=== PATIENT | male | born 1955 | race African-American/Black ===

== ENCOUNTER 2017-01-19 11:51 | Inpatient (IN) | payer OTHER ==
[2017-01-19] VITALS (11 sets, daily range): BP systolic 112–134; BP diastolic 70–86
[~2017-01-19] VITALS: Ht 193 cm; Wt 90.7 kg
[~2017-01-19 11:51] MED LIST: ACIPHEX20 MG ORAL; ASPIRIN81 MG ORAL; Bacitracin 50000 Units Vial ONE; Bupivacaine w/Epi 0.5% 30ml Vial INJ ONE; CARVEDILOL12.5 MG ORAL; CRESTOR20 MG ORAL; DICLOFENAC-MIS1 EAC2 PO; DIOVAN80 MG ORAL; GABAPENTIN300 MG ORAL; Gelfoam Absorbable 1gm powder pkt TOPIC ONE; MORPHINE IR15 MG ORAL; OXYCODONE-ACET1 EAC5 ORAL; TRAMADOL HCL50 MG ORAL; Thrombin 5000 units TOPIC ONE; Thrombin 5000 units spray kit TOPIC ONE
--- NOTE | 2017-01-19 12:29 | Pre-Procedure Note/Attestation ---
Pre-Procedure Note/Attestation Complete Prior to Procedure Procedure Narrative: L3-4, L4-5 Anterior Lumbar Decompression and Fusion Indications for Procedure Pre-Operative Diagnosis: Instability and neural compression L3-4 & L4-5 Attestation I attest that I discussed the nature of the procedure; its benefits; risks and complications; and alternatives (and the risks and benefits of such alternatives ), prior to the procedure, with the patient (or the patient's legal abrasives sales representative). I attest that, if there was a reasonable possibility of needing a blood transfusion, the patient (or the patient's legal abrasives sales representative) was given the [facility] standardized written summary, pursuant to the Amarjit Dimmitt Blood Safety Act ([place] [facility] and Safety Code # 1645, as amended). I attest that I re-evaluated the patient just prior to the surgery and that there has been no change in the patient's H&P, except as documented below: KAITLYNN IZQUIERDO Jan 19, 2017 12:29
[2017-01-19] MEDS ORDERED: Heparin 5000 units/ml inj ONE (12:40)
[2017-01-19] MEDS ORDERED: ePHEDrine 50mg/ml Inj ONE (13:00)
[2017-01-19] MEDS ORDERED: Propofol 10mg/ml 100ml btl IV ONE (13:00)
[2017-01-19] MEDS ORDERED: fentaNYL 100 mcg/2 mL IV ONE (13:00)
[2017-01-19] MEDS ORDERED: Zemuron 50mg/5ml Inj IV ONE (13:00)
[2017-01-19] MEDS ORDERED: Sterile Water Irrig 1000ml IRRIG ONE (13:00)
[2017-01-19] MEDS ORDERED: Midazolam 2mg/2ml Inj ONE (13:00)
[2017-01-19] MEDS ORDERED: NS Irrig 1000ml ONE (13:00)
[2017-01-19] MEDS ORDERED: LR 1000ml ONE (13:00)
[2017-01-19] MEDS ORDERED: LR 1000ml 1,000 ML IVLG SCH ×2 (14:07)
[2017-01-19] MEDS ORDERED: LR 1000ml 1,000 ML IV SCH (14:15)
[2017-01-19] MEDS ORDERED: Meperidine 25mg/ml Inj IV PRN (14:15)
[2017-01-19] MEDS ORDERED: LORazepam Inj 2mg/ml 1ml IV PRN (14:15)
--- NOTE | 2017-01-19 14:22 | Anethesia Preoperative Eval ---
Anesthesia Pre-op PMH/ROS General Date of Evaluation: Jan 19, 2017 Time of Evaluation: 13:00 Anesthesiologist: Edgardo ASA Score: ASA 3 Mallampati Score Class I : Soft palate, uvula, fauces, pillars visible Class II: Soft palate, uvula, fauces visible Class III: Soft palate, base of uvula visible Class IV: Only hard plate visible Mallampati Classification: Class II Surgeon: Alisa Diagnosis: Back Pain Surgical Procedure: ALIF L3-4, L4-5 Social History: smoking - Quit 2 years ago Family History: no anesthesia problems Allergies: Coded Allergies: No Known Allergies (Unverified , 01/16/17) Past Medical History Cardiovascular: Reports: CAD, [place] - s/p Coronary stents X4 Pulmonary: Reports: COPD Gastrointestinal/Genitourinary: Denies: CRI, ESRD, GERD, other Neurologic/Psychiatric: Denies: CVA, TIA, dementia, depression/anxiety, other Endocrine: Denies: DM, hypothyroidism, other, steroids HEENT: Denies: MI'KMAQ (L), MI'KMAQ (R), cataract (L), cataract (R), glaucoma, other Hematology/Immune: Denies: DVT, anemia, bleeding disorder, other Musculoskeletal/Integumentary: Denies: DDD, DJD, OA, RA, edema, other PMH Narrative: CAD, [place] (s/p coronary stents X4), COPD PSxH Narrative: Coronary stents X4, multiple shoulder surgeries Anesthesia Pre-op Phys. Exam Physician Exam Last Vital Signs Date Time Temp Pulse Resp B/P Pulse Ox O2 Delivery O2 Flow Rate FiO2 01/19/17 12:29 97.5 60 18 112/70 98 Room Air Constitutional: NAD Neurologic: CN 2-12 intact Cardiovascular: RRR, no M/R/G Respiratory: CTA Gastrointestinal: S/NT/ND Airway Exam Mallampati Score: Class II MO: full ROM: full Teeth: missing Anesthesia Pre-op A/P Studies Pre-op Studies: EKG - Sinus Doyle, echo - EF 50-55%, normal wall motion, PFTS - Decreased FEV 1 and FVC Risk Assessment & Plan Assessment: Chronic back pain in patient with h/o CAD (s/p [place] and coronary stents) Plan: GETA, Sadorus scope intubation Status Change Before Surgery: No Pre-Antibiotics Drug: Ancef Given Within 1 Hr of Incision: Yes Time Given: 13:30 NEDA ADAMS M.D. Jan 19, 2017 14:22
--- NOTE | 2017-01-19 14:24 | Immediate Post-Op Evaluation ---
Immediate Post-Op Evalulation Immediate Post-Op Evalulation Procedure: ALIF L3-4, L4-5 Date of Evaluation: Jan 19, 2017 Time of Evaluation: 16:02 IV Fluids: 1700 Estimated Blood Loss: 75 Urinary Output: 300 Blood Pressure Systolic: 122 Blood Pressure Diastolic: 80 Pulse Rate: 66 Respiratory Rate: 13 O2 Sat by Pulse Oximetry: 100 Temperature (Fahrenheit): 97.0 Pain Score (1-10): 0 Nausea: No Vomiting: No Complications No complication Patient Status: reacts, patent, extubated, none Hydration Status: adequate Drug: Ancef Given Within 1 Hr of Incision: Yes Time Given: 13:30 NEDA ADAMS M.D. Jan 19, 2017 14:24
[2017-01-19] MEDS ORDERED: NS Irrig 1000ml IRRIG ONE (14:33)
[2017-01-19] MEDS ORDERED: Acetaminophen 650 MG SUPP RECTAL PRN (15:45)
--- NOTE | 2017-01-19 15:53 | Operative Note - PDOC ---
Operative Note Operative Note Pre-op Diagnosis: Instability and neural compression L3-4 & L4-5 Procedure: ALIF L3-4, L4-5 Post-op Diagnosis: same as pre-op Operative Findings: consistent w/pre-op dx studies Surgeon: Alisa Science Writer: AKOSUA Leon Additional Surgeons: Rodriguez - Vascular Access Anesthesiologist: Bibi Anesthesia: general Specimen: none Complications: none Condition: stable Estimated Blood Loss: minimal Drains: none Implant(s) used?: Yes - Cruz[place] InFix implants, KAITLYNN Gaytan Jan 19, 2017 15:53
[2017-01-19] MEDS ORDERED: LORazepam 1mg tab ORAL PRN ×2 (16:00→19:00)
[2017-01-19] MEDS ORDERED: DiphenhydrAMINE 50mg/ml Inj IVP PRN ×2 (16:00→19:00)
[2017-01-19] MEDS ORDERED: PCA HYDROmorphone 1mg/ml 30 ML IV PRN (16:00)
[2017-01-19] MEDS ORDERED: Naloxone 0.4mg/ml Inj IVP PRN ×2 (16:00→19:00)
[2017-01-19] MEDS ORDERED: Rate Change PCA 1 Each MISC PRN ×3 (16:00→19:00)
[2017-01-19] MEDS: Hydromorphone 0.5mg/0.5ml inj IVP PRN ×2 (16:16→16:51)
--- NOTE | 2017-01-19 16:32 | Diagnostic Imaging Report ---
Indication: PAIN, intraoperative Technique: Intraoperative images Comparison: None Findings: Intraoperative image demonstrates needles projected anterior to what are presumably the L3-4 and L4-5 discs. Subsequent images document disc prostheses at L3-4 and L4-5 Impression: Intraoperative imaging, as described
[2017-01-19] MEDS: D5 1/2NS 1,000 ML IV SCH (18:24)
[2017-01-19] MEDS ORDERED: Morphine Sulfate 4mg/ml Inj SUBQ PRN (19:00)
[2017-01-19] MEDS ORDERED: PCA shift volume MISC SCH ×2 (19:00)
[2017-01-19] MEDS ORDERED: Morphine Sulfate 2mg/ml Inj IVP PRN (19:00)
[2017-01-19] MEDS: PCA Morphine 1mg/ml 30 ML IV PRN (19:43)
[2017-01-19] MEDS: PCA shift volume MISC SCH (20:03)
--- NOTE | 2017-01-19 21:08 | Operative Note - Dictated ---
DATE OF OPERATION: 01/19/2017 PREOPERATIVE DIAGNOSIS: Degenerative disease. POSTOPERATIVE DIAGNOSIS: Degenerative disease. PROCEDURE PERFORMED: 1. Anterior retroperitoneal exposure of L3-L4 vertebral interspace. 2. Anterior retroperitoneal exposure of L4-L5 vertebral interspace VASCULAR SURGEON: Vincenzo Rodriguez M.D. SPINE SURGEON: Jean Cuellar M.D. INDICATIONS: The patient is a very pleasant gentleman, who was seen in my office prior to surgery. He was scheduled for anterior fusion at L3-L4 down to L4-L5. He has no history of anterior abdominal surgery. No history of deep venous thrombosis or bleeding complications described. He had been made aware of the risks of vascular surgery including possibility of vascular injury, possible need for blood transfusion, and deep vein thrombosis. DESCRIPTION OF FINDINGS: A vertical midline incision was made centered on the umbilicus. A left retroperitoneal approach was used. There is no peritoneal or ureteral violation. There is no vascular injury. Exposure of L3-L4 and L4-L5 was obtained by retraction of left iliac vessels and the aorta and IVC towards the patient's right using the Omni retractor as well as An blade to assess his retraction. Fluoroscopy used to confirm the appropriate level, major vascular injury and blood loss was approximately 50 mL. On completion, peritoneum ureter intact, iliac vessels intact, palpable femoral and pedal pulses. Pulse oximetry is normal in the left foot throughout the case. DESCRIPTION OF PROCEDURE: The patient was taken to the operating room. General anesthesia was used. IV antibiotics were given. The patient's abdomen was prepped and draped. Appropriate time-out procedures were taken. A vertical midline incision was made infraumbilically with extension just to the left side of the umbilicus and superiorly. The anterior fascia was incised longitudinally in the midline. A plane was identified posterior to the left rectus abdominis and developed posterolaterally towards the patient's left. The retroperitoneal space was entered below the arcuate line. The peritoneum and ureter mobilized towards the patient's right exposing the left common iliac vessels. Dissection was carried on left side and left common vessels and distal aorta overlying lymphatics were identified and ligated with vascular clips. The iliolumbar vein was identified and encircled using a 2-0 silk tie. It was then triply ligated proximally and distally with vascular clips and divided. Dissection was carried superiorly and the L4 segmental artery, vein, as well as the L3 segmental artery and vein were all identified and ligated with vascular clips as well as ligation of accompanying lymphatic vessels was also done using vascular clips. This allowed us to then retract the left iliac vessels and distal aorta towards the patient's right and exposing the anterior surface of both L3-L4 and L4-L5 at same time. The Omni retractor set in place in conjunction with An blade and this allowed excellent exposure. Fluoroscopy then used to confirm the appropriate level and then instrumentation fusion were performed at L3-L4 and L4-L5 dictated separately. On completion, the peritoneum ureter intact. Iliac vessels were intact. The anterior fascia was then closed in #1 PDS in a running fashion and skin subcutaneous tissue closed using 3-0 Vicryl, 4-0 Monocryl, running subcuticular closure technique. ESTIMATED BLOOD LOSS: Less than 50 mL. COMPLICATION: None. Vincenzo Rodriguez M.D. DR: Suma JOB#: [id number] CC: Jean Cuellar M.D.; Fax#: [phone]
--- NOTE | 2017-01-19 21:38 | Operative Note - Dictated ---
DATE OF OPERATION: 01/19/2017 FACILITY: [facility]. SURGEON: Jean Cuellar M.D. PLANT ANATOMY TEACHER: Katie Rollins CO-SURGEON: Co-surgeon for vascular approach and decompression is Dr. Carson Rodriguez. ANESTHESIOLOGIST: Amarjit Reynoso M.D. ANESTHESIA: General endotracheal with arterial blood pressure monitoring. PREOPERATIVE DIAGNOSIS: Lumbar collapse instability and disc disease at L3-L4 and L4-L5 with right-sided neuroforaminal compression causing right-sided radiculopathy. POSTOPERATIVE DIAGNOSES: Lumbar collapse instability and disc disease at L3-L4 and L4-L5 with right-sided neuroforaminal compression causing right-sided radiculopathy. OPERATIVE PROCEDURE: Pararectus approach to the anterior lumbar spine at the L3-L4 and L4-L5 levels by Dr. Rodriguez with vessel mobilization and retraction using a table fixed frame with reverse tip blades. The patient then had an anterior annulotomy, nuclear diskectomy, and partial vertebrectomy with bilateral neural foraminotomy and micro neurolysis. Fixation at the L3-L4 level was with an infix cage using a large foot plate with 10 mm of height with 3+3 degrees of lordosis. Fusion was with bone protein and autogenous bone harvested during the decompression. At L4-L5, a similar procedure was done with anterior annulotomy, nuclear diskectomy, bilateral neural foraminotomy, and partial vertebrectomy without removal of posterior vertebral body osteophytes extending into the canal with an ORIF using an infix cage. At the L4-L5 level, a 12 mm height large foot plate with 3+3 degrees of lordosis was inserted. An image intensifier was used for placement of the prosthesis and identification of the disc level. Pulse oximetry was used and a Cell-Saver was available. The patient was prepped and draped supine on the operating table. Bolster was placed in the lumbar area to create normal lordosis. A left pararectus incision was made mobilizing the rectus and dissecting the retroperitoneal space to expose the anterior spine. The vessels were mobilized and retracted using a table fixed frame and reverse tip blades. X-rays were taken to confirm placement at L3-L4 and L4-L5 and the center of the disc was marked. An anterior annulotomy was done and then the cartilaginous end plates and a nuclear disc substance was removed first at L4-L5 from the front to the back sequentially, inserting lordotic detachable distraction plugs were used on the right and left to expose the posterior aspect of the vertebral body and both foramina. Also, the posterior longitudinal ligament and posterior disc was visualized by the [id number] distraction with progressively larger distraction plugs. The posterior longitudinal ligament and posterior disc annulus was released and removed. Osteophytes extending into the canal and into the right greater than left foramen were then removed with a Kerrison. The rest of the dissection was done with straight and angled curets and pituitaries. The spaces were then incised with a 10 plates. A 10 was chosen to L3-L4 and a 12 mm for L4-L5. The implants were centered between the pedicles and aligned with the spinous process. Each was inserted, the side struts tapped into place, position checked, and then the constructs were cold welded. A bone protein was placed between the two endplates along with autogenous bone that had been harvested. The dural sac and foramen with the exiting root was well seen on both levels right and left. Blood loss was not significant. The wound was then closed in layers including anteroposterior sheath, subcutaneous, and skin. Final x-rays were taken to confirm placement of the infix cage at both L3-L4 and L4-L5. The x-ray showed nice reconstitution of normal disc height with a correction of retrolisthesis at L3-L4 with good centering of the prosthesis on both AP and lateral views to normal sagittal alignment. The patient returned to recovery room in good condition. Jean Cuellar M.D. DR: ANNALEE JOB#: [id number] CC: ANGELA
[2017-01-19] MEDS: ceFAZolin sod 1 GM in D5W 55 ML IV SCH (22:06)
[2017-01-20] VITALS: BP 120/77
[2017-01-20 04:00] VITALS: BP 119/74
[2017-01-20] MEDS: D5 1/2NS 1,000 ML IV SCH ×2 (05:15→13:40)
[2017-01-20] MEDS: ceFAZolin sod 1 GM in D5W 55 ML IV SCH ×2 (05:27→13:39)
[2017-01-20] MEDS: PCA shift volume MISC SCH ×2 (07:21→19:17)
[2017-01-20 07:52] VITALS: BP 121/66
--- NOTE | 2017-01-20 09:27 | 48 Hour Post Anesthesia Eval ---
Post Anesthesia Evaluation Procedure: ALIF L3-4, L4-5 Date of Evaluation: Jan 20, 2017 Time of Evaluation: 09:20 Blood Pressure Systolic: 121 0: 66 Pulse Rate: 72 Respiratory Rate: 16 Temperature (Fahrenheit): 98.7 O2 Sat by Pulse Oximetry: 98 Airway: patent Nausea: No Vomiting: No Pain Intensity: 4 Hydration Status: adequate Cardiopulmonary Status: Stable Mental Status/LOC: patient returned to baseline Follow-up Care/Observations: As per surgery Post-Anesthesia Complications: No anesthetic complication Follow-up care needed: N/A NEDA ADAMS M.D. Jan 20, 2017 09:27
[2017-01-20 12:00] VITALS: BP 112/64
[2017-01-20] MEDS ORDERED: NS Irrig 1000ml ONE (13:00)
--- NOTE | 2017-01-20 14:10 | General Surgery Progress Note ---
General Surgery-Progress Note Subjective Procedure Performed ALIF L3-4, L4-5 Symptoms: improved Objective Last 24 Hour Vital Signs Date Time Temp Pulse Resp B/P Pulse Ox O2 Delivery O2 Flow Rate FiO2 01/20/17 12:00 18 01/20/17 12:00 98.9 70 20 112/64 98 Nasal Cannula 2.0 01/20/17 09:27 72 16 98 01/20/17 08:00 19 01/20/17 07:52 98.7 72 16 121/66 98 Nasal Cannula 2.0 01/20/17 04:00 98.8 75 16 119/74 94 Nasal Cannula 2.0 01/20/17 04:00 18 01/20/17 00:00 98.4 72 16 120/77 96 Nasal Cannula 2.0 01/20/17 00:00 18 01/19/17 20:00 98.2 72 16 129/83 96 Nasal Cannula 2.0 01/19/17 19:44 20 01/19/17 19:43 20 01/19/17 18:26 20 01/19/17 17:51 20 01/19/17 17:49 97.3 67 18 123/82 99 Nasal Cannula 2.0 01/19/17 17:20 98.0 01/19/17 17:20 98.0 01/19/17 17:20 20 01/19/17 17:18 98.0 60 20 128/78 100 Nasal Cannula 2.0 01/19/17 17:00 59 20 134/83 100 Nasal Cannula 2.0 01/19/17 16:51 68 20 126/86 100 Nasal Cannula 2.0 01/19/17 16:50 20 01/19/17 16:35 20 01/19/17 16:20 20 01/19/17 16:16 60 20 126/84 100 Nasal Cannula 2.0 01/19/17 16:10 73 20 126/84 100 Simple Mask 10.0 01/19/17 16:06 20 01/19/17 15:59 65 20 122/85 100 Simple Mask 10.0 01/19/17 15:54 63 20 122/80 100 Simple Mask 10.0 01/19/17 15:53 66 13 100 01/19/17 15:49 97.0 68 20 114/82 100 Simple Mask 10.0 I&O Intake and Output 01/19/17 01/20/17 19:00 07:00 Intake Total 2000 ml 1105 ml Output Total 725 ml 1850 ml Balance 1275 ml -745 ml Intake IV Total 2000 ml 1105 ml Output Urine Total 650 ml 1850 ml Estimated Blood Loss 75 ml # Voids 1 Dressing: dry Wound: clean Drains: none Additional Comments Wound C&D, Lower extremity strength 5/5 bilateral. No lower GI activity yet. Out of bed with PT, dizzy first time. Dr. Duke following. KAITLYNN IZQUIERDO Jan 20, 2017 14:10
[2017-01-20 16:00] VITALS: BP 110/70
[2017-01-20 20:00] VITALS: BP 108/66
[2017-01-20] MEDS: PCA Morphine 1mg/ml 30 ML IV PRN (20:40)
[2017-01-21] VITALS: BP 109/64
[2017-01-21] MEDS: D5 1/2NS 1,000 ML IV SCH ×3 (00:02→21:21)
[2017-01-21 04:00] VITALS: BP 115/70
[2017-01-21] MEDS: PCA shift volume MISC SCH (07:08)
[2017-01-21 08:25] VITALS: BP 117/68
[2017-01-21] MEDS: PCA Morphine 1mg/ml 30 ML IV PRN (11:19)
[2017-01-21 12:00] VITALS: BP 129/75
[2017-01-21 16:00] VITALS: BP 121/75
[2017-01-21] MEDS ORDERED: HYDROmorphone 1mg/ml Carpuject IVP PRN (16:00)
[2017-01-21] MEDS ORDERED: Naloxone 0.4mg/ml Inj IVP PRN ×2 (16:00→20:00)
[2017-01-21] MEDS ORDERED: HYDROmorphone 1mg/ml Carpuject SUBQ PRN (16:00)
[2017-01-21] MEDS ORDERED: Norco 5mg/325mg tab ORAL PRN (16:00)
[2017-01-21] MEDS ORDERED: Norco 7.5mg/325mg tab ORAL PRN ×2 (16:00)
[2017-01-21] MEDS ORDERED: Tubing IV Secondary IV ONE (16:18)
[2017-01-21] MEDS ORDERED: D5 1/2NS 1000ml IV ONE (16:18)
[2017-01-21 20:00] VITALS: BP 122/67
[2017-01-21] MEDS ORDERED: Morphine Sulfate 2mg/ml Inj IVP PRN (20:00)
[2017-01-21] MEDS ORDERED: Morphine Sulfate 4mg/ml Inj SUBQ PRN (20:00)
[2017-01-21] MEDS ORDERED: PCA Morphine 1mg/ml 30 ML IV PRN (20:00)
[2017-01-21] MEDS ORDERED: DiphenhydrAMINE 50mg/ml Inj IVP PRN (20:00)
[2017-01-21] MEDS ORDERED: LORazepam 1mg tab ORAL PRN (20:00)
[2017-01-22 04:00] VITALS: BP 130/79
[2017-01-22] MEDS: D5 1/2NS 1,000 ML IV SCH (05:49)
[2017-01-22] MEDS ORDERED: CPAP (06:51)
[2017-01-22] MEDS ORDERED: PCA shift volume MISC SCH (07:00)
[2017-01-22 08:08] VITALS: BP 134/77
[2017-01-22] MEDS ORDERED: Naloxone 0.4mg/ml Inj IVP PRN ×2 (09:11→12:00)
[2017-01-22 11:50] VITALS: BP 125/73
[2017-01-22] MEDS ORDERED: Norco 7.5mg/325mg tab ORAL PRN (12:00)
[2017-01-22] MEDS ORDERED: Norco 5mg/325mg tab ORAL PRN (12:00)
[2017-01-22] MEDS ORDERED: HYDROmorphone 1mg/ml Carpuject IVP PRN (12:00)
[2017-01-22] MEDS ORDERED: HYDROmorphone 1mg/ml Carpuject SUBQ PRN (12:00)
[2017-01-22] MEDS: Norco 7.5mg/325mg tab ORAL PRN ×2 (12:30→19:06)
--- NOTE | 2017-01-22 14:37 | General Progress Note ---
Assessment/Plan Assessment/Plan ALIF L3-4, L4-5 lumbar disc disease PLAN 1. incentive spirometry 2. SCD 3. PT evaluation and therapy 4. Hydration 5. Pain management 6. discharge once stable with outpatient follow up Subjective Date patient seen: Jan 21, 2017 Allergies: Coded Allergies: No Known Allergies (Unverified , 01/16/17) Objective REVIEWED Height (Feet): 6 Height (Inches): 4.00 Weight (Pounds): 200 Objective WDWN NAD clear breath sounds bilaterally without rhonchi or wheeze [id number] without MRG NABS nontender no HSM no CCE nonfocal REBECCA ANTUNEZ Jan 22, 2017 14:37
[2017-01-22] MEDS ORDERED: D5 1/2NS 1000ml IV ONE (15:21)
[2017-01-22] MEDS ORDERED: D5NS 1000ml IV ONE (15:21)
[2017-01-22 16:45] VITALS: BP 119/73
[2017-01-22 20:53] VITALS: BP 108/69
[2017-01-23 00:30] VITALS: BP 105/66
[2017-01-23 04:11] VITALS: BP 128/75
[2017-01-23 08:10] VITALS: BP 117/70
--- NOTE | 2017-01-23 11:29 | General Surgery Progress Note ---
General Surgery-Progress Note Subjective Procedure Performed ALIF L3-4, L4-5 Symptoms: improved, tolerating diet Objective Last 24 Hour Vital Signs Date Time Temp Pulse Resp B/P Pulse Ox O2 Delivery O2 Flow Rate FiO2 01/23/17 08:10 98.1 67 18 117/70 100 Room Air 01/23/17 04:59 97.9 01/23/17 04:11 97.9 70 19 128/75 95 Room Air 01/23/17 00:30 99.0 68 20 105/66 94 Room Air 01/22/17 23:00 98.1 01/22/17 20:53 100.0 77 20 108/69 96 Room Air 01/22/17 20:05 99.0 01/22/17 16:45 99.0 71 18 119/73 93 Room Air 01/22/17 11:50 99.0 72 18 125/73 95 Room Air I&O Intake and Output 01/22/17 01/23/17 19:00 07:00 Intake Total 800 ml 970 ml Output Total 675 ml 500 ml Balance 125 ml 470 ml Intake Oral 800 ml 970 ml Output Urine Total 675 ml 500 ml # Voids 5 Dressing: dry Wound: clean Drains: none Additional Comments Patient tolerating regular diet. Patient has completed PT / OT training. Dr. Ramírez following. Patient ready fro discharge to home from Orthopedic standpoint. KAITLYNN IZQUIERDO Jan 23, 2017 11:29
[2017-01-23 12:10] VITALS: BP 113/84
[2017-01-23 16:00] VITALS: BP 118/70
--- NOTE | 2017-01-23 17:32 | General Progress Note ---
Assessment/Plan Assessment/Plan ALIF L3-4, L4-5 lumbar disc disease PLAN 1. dc planning to rehab 2. ambulate 3. PT evaluation and therapy 4. encourage fluids 5. Pain management 6. discharge today Subjective Allergies: Coded Allergies: No Known Allergies (Unverified , 01/16/17) Subjective ready for discharge Objective Last 24 Hour Vital Signs Date Time Temp Pulse Resp B/P Pulse Ox O2 Delivery O2 Flow Rate FiO2 01/23/17 16:00 97.7 75 19 118/70 100 Room Air 01/23/17 14:14 98.2 01/23/17 12:10 98.2 69 18 113/84 100 Room Air 01/23/17 08:10 98.1 67 18 117/70 100 Room Air 01/23/17 04:11 97.9 70 19 128/75 95 Room Air 01/23/17 00:30 99.0 68 20 105/66 94 Room Air 01/22/17 23:00 98.1 01/22/17 20:53 100.0 77 20 108/69 96 Room Air 01/22/17 20:05 99.0 Intake and Output 01/22/17 01/23/17 19:00 07:00 Intake Total 800 ml 970 ml Output Total 675 ml 500 ml Balance 125 ml 470 ml Intake Oral 800 ml 970 ml Output Urine Total 675 ml 500 ml # Voids 5 Height (Feet): 6 Height (Inches): 4.00 Weight (Pounds): 200 Objective WDWN NAD clear breath sounds bilaterally without rhonchi or wheeze [id number] without MRG NABS nontender no HSM no CCE nonfocal REBECCA ANTUNEZ Jan 23, 2017 17:32
--- NOTE | 2017-01-26 11:51 | Discharge Summary ---
Discharge Summary Hospital Course Date of Admission Jan 19, 2017 at 11:51 Date of Discharge Jan 23, 2017 at 19:10 Admitting Diagnosis lumbar radiculopathy Reason for Hospitalization: elective surgery HPI Robert Sarmiento is a 62 year old male who was admitted on Jan 19, 2017 at 11:51 for Back Pain and elective lumbar surgery Consultations dr Ramírez IM Procedures 01/19 dr Cuellar ALIF L3-4, L4-5 Hospital Course s/p ALIF L3-4, L4-5 01/19 course of recovery uneventful IS at the bedside, encourage to use while in bed pain management PT/OT wound C/D/I surgery closely followed neurovascular intact motor strength 01/30 BLE tolerated diet voided freely bowel regimen surgeon cleared for dc fup as outpt with surgery DISCHARGE DIAGNOSIS Lumbar collapse instability lumbar disc disease at L3-L4 and L4-L5 with right-sided neuroforaminal compression causing right-sided radiculopathy s/p ALIF L3-4, L4-5 01/19 Discharge Medications Continued Medications: Carvedilol* (Carvedilol*) 12.5 Mg Tablet 12.5 MG ORAL EVERY 12 HOURS, TAB Diclofenac Sodium/Misoprostol (Diclofenac-Misoprost 75-0.2 Tb) 1 Each Tab.ir.dr 1 EACH PO TID, TAB Gabapentin* (Gabapentin*) 300 Mg Capsule 300 MG ORAL THREE TIMES A DAY, CAP 0 Refills Morphine HCl (Morphine Sulfate ER) 15 Mg Tablet.er 30 MG ORAL Q12 PRN for For Pain, TAB Oxycodone Hcl/Acetaminophen 10-325* (Oxycodone-Acetaminophen 10-325*) 1 Each Tablet 0.5 TAB ORAL Q4H PRN for For Pain, TAB Rabeprazole Sodium (Aciphex) 20 Mg Tablet.dr 20 MG ORAL DAILY, TAB Tramadol Hcl* (Ultram*) 50 Mg Tablet 100 MG ORAL Q6H PRN for For Pain, #30 TAB 0 Refills Valsartan (Diovan) 80 Mg Tab 80 MG ORAL BID, TAB Discontinued Medications: Aspirin* (Aspirin*) 81 Mg Tab.chew 81 MG ORAL DAILY, TAB Discharge Condition Upon Discharge: stable Discharge Disposition Patient was discharged home Discharge Diagnoses: Discharge Instructions Discharge Instructions Special Instructions I have been assigned to complete a D/C Summary on this account. I was not involved in the patient management Patricia Elena NP (Vanchtein) January 26, 2017 11:51
== END 2017-01-23 19:10 | disposition short-term general hospital (02) | DRG 460 ==
LOC: SDSOVERFLO 11:51 → 3E 17:37
PROC: 0SB20ZZ Excision of Lumbar Vertebral Disc, Open Approach (ICD-10-PCS; principal; 2017-01-19 13:00)
PROC: 0SG10A0 Fusion of 2 or more Lumbar Vertebral Joints with Interbody Fusion Device, Anterior Approach, Anterior Column, Open Approach (ICD-10-PCS; principal; 2017-01-19 13:00)
PROC: 3E0U0GB Introduction of Recombinant Bone Morphogenetic Protein into Joints, Open Approach (ICD-10-PCS; principal; 2017-01-19 13:00)
PROC: 01NB0ZZ Release Lumbar Nerve, Open Approach (ICD-10-PCS; principal; 2017-01-19 13:00)
DX: M51.16 Intervertebral disc disorders with radiculopathy, lumbar region (principal); I25.2 Old myocardial infarction; M53.2X6 Spinal instabilities, lumbar region; Z87.891 Personal history of nicotine dependence; I25.10 Atherosclerotic heart disease of native coronary artery without angina pectoris; Z95.5 Presence of coronary angioplasty implant and graft; Z98.1 Arthrodesis status
CPT/HCPCS: 36415; 72020; 76001; 86850; 86900; 86901; 87081; 94003; 94150; J2250; J2405